=== PATIENT | female | born 1980 | race Caucasian/White ===

== ENCOUNTER 2021-02-26 13:56 | Emergency (ER) | payer OTHER ==
[~2021-02-26 13:56] MED LIST: ASMANEX110 MCG INH; BACTRIM DS TAB1 EACH PO; COLACE 100MG C100 MG PO; FLOMAX0.4 MG PO; IBUPROFEN600 MG PO; LEXAPRO10 MG PO; NORCO 10-325 T1 EACH PO; NORCO 7.5-3251 EACH PO; SINGULAIR10 MG PO; VITAMIN D3 PO; XYZAL5 MG PO; ZANTAC150 MG PO; ZOFRAN4 MG PO
[2021-02-26 15:35] LABS: HEMOGLOBIN 15.5 gm/dl (12.3-15.3); RED BLOOD COUNT 5.14 M/UL (4.00-5.10); WHITE BLOOD COUNT 12.3 K/UL (4.5-11.0)
[2021-02-26 16:13] LABS: BUN/CREATININE RATIO 16 (0-10)
[2021-02-26] MEDS ORDERED: BENZONATATE200 MG PO (16:58)
== END 2021-02-26 17:10 | disposition home or self-care (01) ==
LOC: ER1 13:56
PROVIDERS: Family Medicine
DX: R07.81 Pleurodynia (principal); R05 Cough; R03.0 Elevated blood-pressure reading, without diagnosis of hypertension; Z20.822 Contact with and (suspected) exposure to COVID-19; Z88.1 Allergy status to other antibiotic agents; Z90.710 Acquired absence of both cervix and uterus; Z88.8 Allergy status to other drugs, medicaments and biological substances
CPT/HCPCS: 0240U; 71046; 80053; 82550; 82553; 83874; 83880; 84484; 85025; 85379; 93005; 96374; 99285; J1885

== ENCOUNTER → 2021-05-09 | Outpatient (CLI) | payer OTHER ==
[~2021-05-09] MED LIST changes: +BENZONATATE200 MG PO
[2021-05-09 13:45] LABS: HEMOGLOBIN 15.2 gm/dl (12.3-15.3); RED BLOOD COUNT 5.01 M/UL (4.00-5.10); WHITE BLOOD COUNT 10.2 K/UL (4.5-11.0)
[2021-05-09 14:00] LABS: BUN/CREATININE RATIO 14 (0-10)
== END ==
LOC: CT 13:00
PROVIDERS: Internal Medicine
DX: R07.81 Pleurodynia (principal); R06.00 Dyspnea, unspecified; R74.01 Elevation of levels of liver transaminase levels
CPT/HCPCS: 36415; 71275; 80053; 82550; 82553; 85025; 85652; 86140; Q9967

== ENCOUNTER → 2022-02-13 | Outpatient (CLI) | payer OTHER | LOC: KOH-I 11:58 | DX: M25.561 Pain in right knee (principal); M17.11 Unilateral primary osteoarthritis, right knee | CPT/HCPCS: 73562 ==